=== PATIENT | female | born 1990 | race Caucasian/White ===

== ENCOUNTER 2016-08-18 05:50 | Observation (INO) | payer BC ==
--- NOTE | 2016-08-18 06:08 | ED ---
Neurological HPI - HPI Summary HPI Summary: Patient is 27 weeks and noticed acute onset of L arm and leg to be insensate while playing video games at 0510. Persistent since onset. No allev factors attempted. Denies trauma or headche. - History of Current Complaint Chief Complaint: ED Stated Complaint: NO FEELING LEFT SIDE OF BODY/7 MONTHS PREG Time Seen by Provider: 08/18/16 05:52 Hx Obtained From: Patient, Family/Electric Range Servicer - Onset/Duration: Sudden Onset, Other - Started 0510 Timing: Constant Onset Severity: Mild Current Severity: Mild Neurological Deficit Location: LUE, LLE Pain Intensity: 0 - Allergy/Home Medications Allergies/Adverse Reactions: Allergies Allergy/AdvReac Type Severity Reaction Status Date / Time No Known Allergies Allergy Verified 08/18/16 06:58 Home Medications: Home Medications Docosahexaenoic Acid [ Dha] 200 mg PO DAILY 08/18/16 [History Confirmed 08/18/16] PMH/Surg Hx/FS Hx/Imm Hx Previously Healthy: Yes Infectious Disease History: No Infectious Disease History: Denies: Traveled Outside the [place] in Last 30 Days - Family History Known Family History: Positive: None - Social History Alcohol Use: Occasionally Substance Use Type: Reports: None Smoking Status (MU): Never Smoked Tobacco Review of Systems Positive: Numbness All Other Systems Reviewed And Are Negative: Yes Physical Exam Triage Information Reviewed: Yes Vital Signs On Initial Exam: Initial Vitals Temp Pulse Resp BP Pulse Ox 97.6 F 99 16 116/82 97 08/18/16 05:53 08/18/16 05:53 08/18/16 05:53 08/18/16 05:53 08/18/16 05:53 Vital Signs Reviewed: Yes Appearance: Positive: Well-Appearing, No Pain Distress, Well-Nourished Skin: Positive: Warm, Skin Color Reflects Adequate Perfusion, Dry Head/Face: Positive: Normal Head/Face Inspection Eyes: Positive: Normal, EOMI, DC ENT: Positive: Normal ENT inspection, Hearing grossly normal, Pharynx normal Respiratory/Lung Sounds: Positive: Clear to Auscultation, Breath Sounds Present Cardiovascular: Positive: Normal, RRR, Pulses are Symmetrical in both Upper and Lower Extremities Abdomen Description: Positive: Nontender, No Organomegaly, Soft, Other: - Gravid abdomen Musculoskeletal: Positive: Normal, Strength/ROM Intact Neurological: Positive: Normal, Alert, Oriented to Person Place, Time, CN Intact II-III, Reflexes Intact, Normal Gait, Heel to Toe, Finger to Nose, Facial Symmetry - Insensate to pain from the shoulder to finger tips and hip to toes on the L arm and leg on dorsal and volar side. Pressure sensation intact. , Speech Normal, Pronator Drift Present. Negative: Abnormal Gait, Receptive Aphasia, Expressive Aphasia, Babinski Left, Babinski Right, Babinski Bilateral, Cerebellar Dysfunction, Disoriented, EOM Palsy, Facial Droop, Slurred Speech, Dysphagia, Rhomberg, Ataxic Gait, Dysarthric Aphasia Diagnostics - Vital Signs Vital Signs Temp Pulse Resp BP Pulse Ox 08/18/16 05:53 97.6 F 99 16 116/82 97 - Laboratory Result Diagrams: 08/18/16 06:00 08/18/16 06:00 Lab Statement: Any lab studies that have been ordered have been reviewed, and results considered in the medical decision making process. NIH Scale - NIH Scale Level of Consciousness: Alert/Keenly Responsive Ask Patient the Month and His/Her Age: Both Correct Ask Pt to Open/Close Eyes and Radiology Specialist/Release Non-Paretic Hand: Both Correctly Best Gaze (Only Horizontal Eye Movement): Normal Visual Field Testing: No Visual Loss Facial Paresis-Pt to Smile & Close Eyes or Grimace Symmetry: Normal/Symmetrical Motor Function - Right Arm: No Drift-Holds 10 Seconds Motor Function - Left Arm: No Drift-Holds 10 Seconds Motor Function - Right Leg: No Drift-Holds 10 Seconds Motor Function - Left Leg: No Drift-Holds 10 Seconds Limb Ataxia-Must be out of Proportion to Weakness Present: Absent Sensory (Use Pinprick to Test Arms/Legs/Trunk/Face): Severe to Total Loss Best Language (Describe Picture, Name Items): No Aphasia Dysarthria (Read Several Words): Normal Extinction and Inattention: No Abnormality Total Score: 2 Course/Dx - Differential Dx Differential Diagnoses Neuro: Positive: Cerebrovascular Accident, Intracranial Bleed, Metabolic Abnormality, Transient Ischemic Attack, Other - NIH of [address] head and admit due to state and CVA onset at 0510 am. - Diagnoses Provider Diagnoses: Numbness and tingling in left arm - Physician Notifications Discussed Care of Patient With: 06:40a Dr. White would like carotid duplex and MRA/MRI brain non contrast stat. He asked for photo technologist to be called in if needed and to be first patient for carotid duplex and MRI. Radiology is arranging for MR to be done first of the morning. 06:50a Bedside carotid ultrasound without dissection or occlusion on B mode or color flow. Limited without duplex ability. - Critical Care Time Critical Care Time: 30-74 min Discharge - Discharge Plan Condition: Stable Disposition: ADMITTED TO [facility]
[2016-08-18 06:16] LABS: Hematocrit 37 % (35-47); Hemoglobin 12.9 g/dl (12.0-16.0); Mean Corpuscular HGB Conc 35 g/dl (31-36); Mean Corpuscular Hemoglobin 31 pg (27-31); Mean Corpuscular Volume 89 fL (80-97); Mean Platelet Volume 8 um3 (7.4-10.4); Red Blood Count 4.18 10^6/ul (4.0-5.4); Red Cell Distribution Width 14 % (10.5-15); White Blood Count 8.4 10^3/ul (3.5-10.8)
[2016-08-18 06:30] LABS: BUN/Creatinine Ratio 15.9 (8-20); Calcium 8.9 mg/dL (8.6-10.3); EGFR African American 225.9 (>60); EGFR Non-African American 175.7 (>60); Potassium 3.8 mmol/L (3.5-5.0)
--- NOTE | 2016-08-18 08:07 | RAD ---
INDICATION: Cerebrovascular accident. COMPARISON: There are no prior studies available for comparison. TECHNIQUE: Contiguous axial sections of the brain were obtained from the skull base to the vertex without contrast. FINDINGS: The ventricles, cisterns and sulci are within normal limits. No significant focal abnormality or mass effect is seen. There appears to be normal bearden-white differentiation. There is no evidence for hemorrhage. No significant focal osseous abnormality is seen. The visualized portion of the paranasal sinuses and mastoid air cells appear clear. The results of this exam were called by Image Summer Nanny at 0630 hours. IMPRESSION: NO EVIDENCE FOR GROSS ACUTE INFARCT, MASS EFFECT OR HEMORRHAGE. CONSIDER AN MRI OF THE BRAIN FOR FURTHER EVALUATION.
--- NOTE | 2016-08-18 09:36 | RAD ---
Indication: Stroke. Sagittal and axial T1, axial T2, FLAIR, diffusion and susceptibility weighted images of the brain were obtained. Ventricular structures are midline. No midline shift is noted. The extra-axial spaces are unremarkable. Diffusion-weighted images demonstrates no restriction of diffusion. T2 weighted images demonstrates no evidence of vasogenic edema. No evidence of space-occupying lesions are noted. The brainstem demonstrates no abnormal signal. Cerebellopontine angles are unremarkable. Mastoid air cells are otherwise unremarkable. Minimal mucosal thickening of the maxillary sinuses is noted. IMPRESSION: No intracranial lesion is identified. No restriction of diffusion is noted. Findings discussed with Dr. White approximately 9:25 AM.
--- NOTE | 2016-08-18 09:39 | RAD ---
Indication: LEFT arm weakness with clinical concern for CVA. Comparison: MRI and CT brain exams of the same date. Technique: Picturaea 1.5 Sonia [id number] with GEM suite. MR angiography 3-D [id number] data was obtained with rotational display of the [place] of Blunt and posterior fossa arteries. Report: Patent intracranial internal carotid arteries as well as the M1 and M2 segments of the middle cerebral arteries and the A1 and A2 segments of the anterior cerebral arteries. No definitive anterior communicating artery visualized. Both vertebral arteries contribute to the unremarkable basilar artery. Unremarkable cerebellar artery origins. Patent bilateral posterior cerebral arteries are supplied by both the posterior circulation via P1 segments and anterior circulation via posterior communicating arteries. No central intracranial aneurysms evident. IMPRESSION: Negative MRA of the central intracranial arterial vasculature.
[2016-08-18] MEDS: NS 0.9% 1000 ML* 1,000 ML IV SCH ×2 (09:44→20:47)
[2016-08-18] MEDS ORDERED: Acetaminophen TAB* 325 MG PO PRN (10:04)
--- NOTE | 2016-08-18 10:07 | PN ---
Hospitalist Progress Note HOSPITALIST ADDENDUM Case discussed again with Dr. White. MRI and MRA were reviewed with Radiology and no abnormalities were seen. He d/w OBGYN and plan is to give Aspirin 81mg/ day. Awaiting echocardiogram and carotid US. Will request PT/OT consults.
--- NOTE | 2016-08-18 10:14 | HP ---
HISTORY AND PHYSICAL: DATE OF ADMISSION: 08/18/16 TIME OF EVALUATION: 07:40 a.m. CONSULTING NEUROLOGIST: Dr. Jim White. CONSULTING OB-AUTOMATIC PATTERN EDGER: Dr. Kenneth Vergara. CHIEF COMPLAINT: Left arm numbness and weakness. HISTORY OF PRESENT ILLNESS: Ms. Childs is a 25-year-old lady with past medical history of possible migraines who presented to the emergency room around 6 in the morning with complaints of sudden onset of left hand numbness. She states that she did not sleep overnight and was playing video games, and around 5 in the morning she had the sudden onset of loss of feeling on her left hand, and 5 minutes later that extended up to her arm and left face. Although she complains of numbness, what she means by numbness is that she could not feel the arm and movement was also impaired. Her boyfriend was present and states that she did not have a facial droop and did not have speech changes, but became very anxious. She denies headache, facial droop. No dysarthria. She states that she did not realize her leg was also numb, but in the emergency room while she was being examined by the emergency room provider, during the sensation part she realized that the sensation was different on her left leg. She denies left leg weakness and states she was able to ambulate in the emergency room with no problems. The patient is , but she is not sure about how many weeks at this time. She thinks she is due around October 08 and she has been followed regularly by midwives at [place] OB-AUTOMATIC PATTERN EDGER. She states that she last took Tylenol weeks ago for some headache and has not taken any other medications. She does state that for the past week, she thought maybe she was coming down with a viral illness with some nasal congestion, some dry cough, but she did not take any medications for it. PAST MEDICAL HISTORY: Possible migraines. MEDICATION LIST: vitamin. ALLERGIES: No known drug allergy. FAMILY HISTORY: Maternal grandfather of a heart attack, and paternal grandfather was a smoker and of lung cancer. There is no family history of stroke. SOCIAL HISTORY: The patient denies tobacco, alcohol, or drug use. 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 Surrogate decision maker is her father, Otoniel Childs , phone number [phone]. REVIEW OF SYSTEMS: A 14-point review of systems was performed and all the pertinent negative and positive findings are in the HPI. PHYSICAL EXAMINATION GENERAL: The patient is a pleasant young lady, lying on ER stretcher, in no acute distress. VITAL SIGNS: Temperature 97.6, heart rate 87, respiratory rate 16, oxygen saturation 97% on room air, blood pressure 114/75. HEENT: Pupils are equal and reactive to light. Moist mucous membranes. CHEST: Breath sounds present bilaterally with no added sounds. CVS: Normal S1, S. Regular rate and rhythm. ABDOMEN: Soft. The patient is . Bowel sounds are present. There is no tenderness on palpation. EXTREMITIES: No edema. NEUROLOGIC: She is alert, awake, oriented x3. I performed a neurological exam with Dr. White and the findings varied during evaluation. The patient initially had no pronator drift on the left, but later on there was suggestion of some pronator drift. The same thing happened with evaluation of the strength on her left hand; the findings were equivocal. She does appear to have sensation on her left upper extremity; but, when he checked vibration, the sensations split at midline. DIAGNOSTIC STUDIES/LAB DATA: The patient had a CBC that showed WBC of 8.4, hemoglobin 12.9, hematocrit 37, platelets 267. INR was 0.95. Chemistry showed a sodium of 134, potassium 3.8, chloride 105, bicarb 22, BUN 7, creatinine 0.4, glucose 101, calcium 8.9. Lipid profile is pending at this time. EKG was not performed in the emergency room and is now ordered. CT brain read by night radiologist showed no mass effect or intracranial hemorrhage. ASSESSMENT AND PLAN: Ms. Childs is a 25-year-old healthy lady who is now , in her third trimester, who presents to the emergency room with complaints of sudden onset of left arm numbness and weakness around 5 this morning, who is being admitted for further evaluation of a possible TIA versus CVA. 1. Left arm paresthesia and weakness. The patient will be admitted as observation to telemetry. Carotid ultrasound is ordered, and I am also going to order an echocardiogram with bubble study. Dr. White was present in the emergency room during my evaluation and he has made arrangements for a stat MRI/ MRA of the head and further decision will be made after the result. He recommended waiting on aspirin for now until we see her MRI result. A Neurology consultation had already been requested with him. The patient is going to be monitored with neurological checks and, depending on the results of her MRI and therapeutic plan, she may need to be transferred to the Intensive Care Unit. 2. . As per nursing report, the patient had a Doppler done at bedside that revealed a heart of 150. I have requested a consultation with OB-AUTOMATIC PATTERN EDGER (Dr. Vergara) to follow the patient throughout the hospital stay. 3. Code status is full. 4. DVT prophylaxis. The patient has a score of 1 on the DVT Prophylaxis Risk Assessment Guide, and she is going to have SCDs while in bed and we're going to encourage ambulation. TIME SPENT: Approximately 55 minutes were spent with the patient interview, medical record review, physical examination to complete the admission; more than half of this time was spent [id number] with the patient and coordination of care. CC: Midwives at [place] OB-AUTOMATIC PATTERN EDGER; Dr. Jim White; Dr. Kenneth Vergara * [id number]/[facility] #: [id number] RADHA
[2016-08-18] MEDS: Aspirin EC Low Dose* 81 MG TAB.EC PO SCH (10:59)
--- NOTE | 2016-08-18 11:36 | CONS ---
ADDENDUM NOW INCLUDED ON THIS REPORT CONSULTATION REPORT: DATE OF CONSULT: 08/18/16 PATIENT OF: Dr. Mcmahan HISTORY OF PRESENT ILLNESS: This is a 25-year-old right-handed woman who is 27 weeks and has been in good health other than having a cold with runny nose in the past week or so. She presented with numbness and some tingling of the left arm and beginning in the hands spreading up the arm and then affecting the face. She had no numbness in the left leg that she noted when she came in but upon testing, she noted it was numb and tingling. She had no weakness upon history and had no problems with walking, and when I spoke to the ER physician at 6:45 to 6:55 roughly, he noted no weakness to me but she had a pronator drift. I had asked for acute MRI scan at that point and called back to see if they have been contacted and was being done as the first one. He said it was in the process of filling, it has not been done to this point. She has had no speech problems with this. She has had headache, including a migraine headache, in the past few weeks time, but there has been no headache with these current symptoms. There has been no head trauma. MEDICATIONS: vitamins is her only vitamin. ALLERGIES: She has no known drug allergies. FAMILY HISTORY: There is no family history for stroke. SOCIAL HISTORY: She does not smoke, drink, or use drugs. REVIEW OF SYSTEMS: Negative in all 14 spheres other than HPI. PHYSICAL EXAM: Temperature 97.6, pulse 87, respirations 16, blood pressure 114/ 75. She is alert and oriented with normal speech and comprehension. Cranial nerves II through XII are intact including normal fundi. There is no facial asymmetry. Her only cranial nerve deficit was that she could not feel touch or vibration on the left side of her face, including there was a sharp demarcation of this vibration splitting in the midline on her forehead. Motor exam revealed some weakness on the left side. It varied from exam to exam. She had at different times a pronator drift and at other times did not. She had at least trace weakness in the left arm and hand, but at times she would drop her arm quickly to the bed. When I came into the room at one point, she was holding her cell phone with both hands and appeared to have good dexterity and she was able to do alternating fingers without problem. Her supervisor cutting department at times by hand would go easily through her fingers, but then when I pulled back on her, she had excellent resistance. She had some varying degree of weakness in the left leg at times. It was just trace to none, but at one point it was 5-/5, but at that point, she had a positive Farnsworth's sign. Toes were downgoing. She had fluctuated sensory exam but at one point she could not feel at all to even light touch, but would feel pressure in her left arm and leg. DIAGNOSTIC STUDIES/LAB DATA: Her CT scan was reviewed and was normal. She has normal CBC, INR, and PTT. Chemistries showed normal BMP other than glucose of 101. LDL was pending. IMPRESSION: Marguerite has evidence of left-sided symptoms of acute onset, some of which appear to be functional such as vibration, splitting in the midline on her forehead and some give-way weakness. However, it is impossible to know whether there is underlying organic stroke going on; if so, given her best efforts, it would appear to be very mild if there at all. An MRI scan would be quite useful and I have contacted the radiologist and the test will be done as the next test. I discussed with her that if she was having a severe stroke, she was within the tPA window and that she will be a potential candidate. However, I think that there is significant functional overlay and we will be getting an MRI scan shortly to help sort this out. She will also need an echo, an ultrasound, an MRI of the brain as well as fasting lipids, and if the MRI scan is negative and we feel she does not need to be on tPA, then we will begin aspirin once we check with the OB. Thank you for sharing her case. ADDENDUM: I reviewed the MRI scan and spoke to Dr. Patel earlier and saw the patient down an MRI scan area after the MRI scan. The MRI scan was normal. The MRA of the head was normal. The patient still had numbness. The strength was somewhat better, although she still had giveaway weakness in her supervisor cutting department of her left hand. I discussed with her, it is possible she could have had a small stroke, small enough not visualized on MRI scan, but some of her symptoms maybe stress related and that the degree of her symptoms that I could not be sure that was stress related, the deficit is quite small and I expected that she would get better. I spoke to the OB who says that there will be no problem with baby aspirin and I would recommend that she get that now on an ongoing basis. [id number]/[facility] #: [id number] A- [id number]/[facility] #: [id number] MTDD
--- NOTE | 2016-08-18 12:20 | PN ---
Progress Note - Progress Note Note: 25 yo with new onset left arm weakness . at 33 weeks gestation. uncomplicated other than referral currently for episodes of palpitation. pt being evaluated for CVA event . If risk of embolic or cva ,asa 81 mg would safe to use . If signifant concern other anticoagulation is appropriate. Prenatals are on the chart. Will order a nst while in house to assess well being CALL IF ANY CONCERNS Soren Vergara mD
--- NOTE | 2016-08-18 13:30 | RAD ---
HISTORY: Left-sided numbness COMPARISONS: None TECHNIQUE: Multiple transverse and longitudinal ultrasound images were obtained of the carotid and vertebral arteries bilaterally, using grayscale, color Doppler, and spectral Doppler imaging. FINDINGS: Measurement of carotid stenosis is based on flow velocity parameters that correlate the residual internal carotid artery diameter with [place] Symptomatic Carotid Endarterectomy Trial (NASCET)-based stenosis levels. RIGHT: Intima: The intima is normal. Velocities: Right internal carotid artery maximum peak systolic velocity: 78 cm/s Right common carotid artery maximum peak systolic velocity: 144 cm/s Right internal carotid artery/common carotid artery ratio: 0.5 Waveforms: There is no spectral broadening. Right Vertebral: The right vertebral artery flow is antegrade. LEFT: Intima: The intima is normal. Velocities: Left internal carotid artery maximum peak systolic velocity: 100 cm/s Left common carotid artery maximum peak systolic velocity: 147 cm/s Left internal carotid artery/common carotid artery ratio: 1 Waveforms: There is no spectral broadening. Left Vertebral: The left vertebral artery flow is antegrade. OTHER FINDINGS: None. IMPRESSION: 1. NO HEMODYNAMICALLY SIGNIFICANT STENOSIS OF THE RIGHT INTERNAL CAROTID ARTERY BY FLOW VELOCITY MEASUREMENTS. THIS CORRESPONDS TO A LUMINAL DIAMETER OF LESS THAN 50% STENOSIS BY NASCET CRITERIA. 2. NO HEMODYNAMICALLY SIGNIFICANT STENOSIS OF THE LEFT INTERNAL CAROTID ARTERY BY FLOW VELOCITY MEASUREMENTS. THIS CORRESPONDS TO A LUMINAL DIAMETER OF LESS THAN 50% STENOSIS BY NASCET CRITERIA. CPT II Codes: 3100F
--- NOTE | 2016-08-18 15:09 | CONS ---
CONSULTATION REPORT:* DATE OF CONSULTATION: ADDENDUM: I reviewed the MRI scan and spoke to Dr. Patel earlier and saw the patient down an MRI scan area after the MRI scan. The MRI scan was normal. The MRA of the head was normal. The patient still had numbness. 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 I discussed with her, it is possible she could have had a small stroke, small enough not visualized on MRI scan, but some of her symptoms maybe stress related and that the degree of her symptoms that I could not be sure that was stress related, the deficit is quite small and I expected that she would get better. I spoke to the OB who says that there will be no problem with baby aspirin and I would recommend that she get that now on an ongoing basis. [id number]/[facility] #: [id number] MTDD
--- NOTE | 2016-08-18 18:39 | ECHO ---
Patient: CALLIE GAN [facility] Rec#: [id number] : 1990 Date: 08/18/2016 Age: 25y Height: 162 cm / 63.8 in Weight: 66 kg / 145.5 lbs Sex: F BSA: 1.7 Room#: 438 Admit Date#: 08/18/2016 Type: Inpatient Referring: Carlyn Duncan MD Reading: Karthikeyan Victor MD Pilot Submersible: Jose Miguel Recio RDCS Transthoracic Echocardiogram Indication: TIA, BP: 107/50 HR: 78 Rhythm: NSR Findings History: tia Technical Comments: The study quality is good. Left Ventricle: The left ventricular chamber size is normal. Global left ventricular wall motion and contractility are within normal limits. There is normal left ventricular systolic function. The estimated ejection fraction is 60-65%. The left ventricular diastolic filling pattern is consistent with pseudonormalization. Left Atrium: The left atrial chamber size is normal. Right Ventricle: The right ventricular cavity size is normal. The right ventricular global systolic function is normal. Right Atrium: The right atrial cavity size is normal. There is no evidence of patent foramen ovale shunting. by color or bubble study. Aortic Valve: The aortic valve is trileaflet. There is a trace of aortic regurgitation. There is no evidence of aortic stenosis. Mitral Valve: The mitral valve leaflets appear normal. There is no evidence of mitral regurgitation. There is no evidence of mitral stenosis. Tricuspid Valve: The tricuspid valve appears normal in structure and function. There is no evidence of tricuspid valve regurgitation. Pulmonic Valve: The pulmonic valve appears normal. There is a trace pulmonic regurgitation. Pericardium: There is no pericardial effusion. Aorta: There is no dilatation of the ascending aorta. There is no dilatation of the aortic arch. There is no dilation of the aortic root. Pulmonary Artery: The main pulmonary artery appears normal. Venous: The inferior vena cava appears normal in size. There is a greater than 50% respiratory change in the inferior vena cava dimension. Contrast: Intravenous agitated saline contrast was used to assess intracardiac shunting. image 72 Summary: There was not any prior study for comparison. Conclusions Global left ventricular wall motion and contractility are within normal limits. The estimated ejection fraction is 60-65%. There is a trace of aortic regurgitation. There is no evidence of patent foramen ovale shunting. by color or bubble study. Measurements Name Value Normal Range RVIDd (AP) 2D 2.4 cm (0.9 - 2.6) RVDdMajor (2D) 2 cm (2.2 - 4.4) RAd ISD 4CH 3.3 cm (3.4 - 4.9) IVSd (2D) 0.7 cm (0.6 - 1) LVPWd (2D) 0.7 cm (0.6 - 1) LVIDd (2D) 4.3 cm (3.6 - 5.4) LVIDs (2D) 2.6 cm - LV FS (2D) 39 % (25 - 45) Aortic Annulus 1.6 cm (1.4 - 2.6) Ao root diameter (2D) 2.8 cm (2.1 - 3.5) Ascending Ao 2.7 cm (2.1 - 3.4) Aortic arch 2.3 cm (1.8 - 3.4) LA dimension (AP) 2D 3.4 cm (2.3 - 3.8) LAd ISD 4CH 4.8 cm (2.9 - 5.3) LA ISD 4CH W 3.1 cm (2.5 - 4.5) Name Value Normal Range LA ESV SP 4CH (A/L) 38 ml - LA ESV SP 2CH (A/L) 46 ml - LA ESV BP (A/L) 42 ml - LA ESV BP (A/L) index 24.97 ml/m2 - LA ESV SP 4CH (MOD) 33 ml - LA ESV SP 2CH (MOD) 44 ml - Name Value Normal Range MV E-wave Vmax 0.82 m/sec - MV deceleration time 114 msec - MV A-wave Vmax 0.62 m/sec - MV E:A ratio 1.32 ratio - LV septal e' Vmax 0.1 m/sec - LV lateral e' Vmax 0.15 m/sec - LV E:e' septal ratio 8.2 ratio - LV E:e' lateral ratio 5.4 ratio - Name Value Normal Range LVOT diameter 1.7 cm - LVOT Vmax 1.3 m/sec - Name Value Normal Range IVC diameter 1.56 cm - Name Value Normal Range PV Vmax 1.04 m/sec - PV peak gradient 4.31 mmHg -
[2016-08-19 07:53] VITALS: BP 94/57
[2016-08-19] MEDS: Aspirin EC Low Dose* 81 MG TAB.EC PO SCH (07:58)
[2016-08-19] MEDS: NS 0.9% 1000 ML* 1,000 ML IV SCH (07:58)
--- NOTE | 2016-08-19 11:03 | PN ---
Progress Note - Progress Note Note: Discharge Note: Primary Dx: Hemiparesis/parasthesias, possible stroke vs hemiplegic migraine Secondary Dx: Procedures: TTE w/ bubble study: NEG Carotid doppler: NEG MRA brain: NEG MRI brain: NEG Consults: Dr. White of neurology Exam: CN II-XII intact Motor 5/5 UE, LE No pronator drift DTR 2+/symmetric UE, LE
--- NOTE | 2016-08-20 01:18 | DS ---
CC: Dr. 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 SECONDARY DIAGNOSES: 1. . 2. History of migraines. MEDICATIONS ON DISCHARGE: 1. Aspirin 81 mg p.o. daily. 2. Tylenol 650 mg p.o. 4 times a day p.r.n. pain. 3. vitamins 1 tab p.o. daily. HOSPITAL COURSE: A 25-year-old woman was admitted through the emergency department by Dr. Arlene kim th left arm numbness and weakness. The patient also states she had numbness on the left side of her face and her left leg. The patient is followed by Dr. Vergara and Dr. Mcgraw of [facility]. The patient is not a smoker. Please see the history and physical for full details of this medica l admission. The patient had a head CT that was negative for infarct or hemorrhage. The patient had a carotid Doppler bilateral with no evidence of stenosis. The patient had a MRI and MRA of the bra in, which showed no infarct and no intracerebral narrowing. She also had a transthoracic echocardiog josiah with a bubble study that showed no patent foramen ovale or other valvular or structural heart di sease. The patient was kept on telemetry for 24 hours in the hospital and her symptoms resolved ove rnight. She was seen in consultation by Dr. White of Neurology who was concerned about TIA versus stroke versus somatic syndrome. The patient also was seen in [facility] and the patient had a normal heart tracing in the morning of discharge. The patient has b een started on aspirin 81 mg p.o. daily to prevent further strokes or TIAs while she is in her pregn maureen, hypercoagulable state. If she has a noted event, I would recommend a transesophageal echocard iogram. The patient also reports some palpitations, which were not born out as anything concerning on telemetry. Outpatient Holter monitor should be considered. DISPOSITION: Home. ACTIVITY: As tolerated. DIET: Regular. FOLLOWUP: She is going to follow up with my office for primary care and see Dr. Mcgraw and that group for continued [facility] care. Her estimated date of delivery is in October, so she is probably in the second, early third trimester. [id number]/[facility] #: [id number]
[2016-08-21 15:21] LABS: LAC APTT 28 sec (26 - 36); Lac DRVVT Screen Ratio 0.9 ratio (0.0 - 1.1); Prothrombin Time(LAC) 11.4 sec
[2016-08-21 18:46] LABS: Phospholipid Ab IgG < 9.4 GPL; Phospholipid Ab IgM, S < 9.4 MPL
[2016-08-23 16:01] LABS: Prothrombin 20210 Mutation Heterozygous (Negative)
== END 2016-08-19 13:00 | disposition home or self-care (01) ==
LOC: ED 05:50 → MEDTELE 06:55
PROVIDERS: ADMIT Internal Medicine; ATTEND Internal Medicine
DX: O26.893 Other specified pregnancy related conditions, third trimester (principal); Z3A.33 33 weeks gestation of pregnancy; R20.9 Unspecified disturbances of skin sensation; R53.1 Weakness; R20.2 Paresthesia of skin; I34.0 Nonrheumatic mitral (valve) insufficiency; Z79.899 Other long term (current) drug therapy
CPT/HCPCS: 36415; 70450; 70544; 70551; 80048; 80061; 81240; 85027; 85610; 85613; 85730; 86147; 93005; 93306; 93880; 96360; 96361; 99291; A9270-GY; G0378

== ENCOUNTER 2016-08-23 13:43 | Emergency (ER) | payer BC ==
[2016-08-23 14:27] VITALS: BP 110/66
--- NOTE | 2016-08-23 16:04 | UC ---
FLU HPI - HPI Summary HPI Summary: COUGH NASAL CONGESTION BODY ACHES FOR TWO DAYS.33 WKS - History of Current Complaint Chief Complaint: UC Stated Complaint: HEAD/CHEST CONGESTION Time Seen by Provider: 08/23/16 14:56 Hx Obtained From: Patient Hx Last Menstrual Period: 33 weeks preg. Onset/Duration: Sudden Onset, Lasting Days, Still Present Pain Intensity: 0 Pain Scale Used: 0-10 Numeric Associated Signs & Symptoms: Positive: F/C, Nasal Congestion Related Hx: Possible Flu/Infectious Exposure - Allergy/Home Medications Allergies/Adverse Reactions: Allergies Allergy/AdvReac Type Severity Reaction Status Date / Time No Known Allergies Allergy Verified 08/18/16 06:58 PMH/Surg Hx/FS Hx/Imm Hx Previously Healthy: Yes Cardiovascular History Of: Denies: Pacemaker/ICD - Surgical History Surgical History: Yes Surgery Procedure, Year, and Place: [place],2009 - Family History Known Family History: Positive: None Negative: Respiratory Disease - Social History Occupation: Employed Full-time Lives: With Family Alcohol Use: None Substance Use Type: None Smoking Status (MU): Never Smoked Tobacco Review of Systems Constitutional: Fever, Chills Skin: Negative Eyes: Negative ENT: Negative Respiratory: Negative Cardiovascular: Negative Gastrointestinal: Negative Genitourinary: Negative Motor: Negative Neurovascular: Negative Musculoskeletal: Arthralgia, Myalgia Neurological: Negative Psychological: Negative All Other Systems Reviewed And Are Negative: Yes Physical Exam Triage Information Reviewed: Yes Appearance: No Pain Distress, Well-Nourished, Ill-Appearing - MILD Vital Signs: Initial Vital Signs Temp 98.8 F 08/23/16 14:20 Pulse 74 08/23/16 14:20 Resp 16 08/23/16 14:20 BP 110/66 08/23/16 14:20 Pulse Ox 96 08/23/16 14:20 Vital Signs Reviewed: Yes Eye Exam: Normal ENT Exam: Normal ENT: Positive: Normal ENT inspection, Hearing grossly normal, Pharynx normal, TMs normal Dental Exam: Normal Neck exam: Normal Neck: Positive: Supple, Nontender, No Lymphadenopathy Respiratory Exam: Normal Respiratory: Positive: Chest non-tender, Lungs clear, Normal breath sounds, No respiratory distress, No accessory muscle use Cardiovascular Exam: Normal Cardiovascular: Positive: RRR, No Murmur, Pulses Normal Abdominal Exam: Normal Abdomen Description: Positive: Nontender, No Organomegaly Musculoskeletal Exam: Normal Musculoskeletal: Positive: Strength Intact, ROM Intact, No Edema Neurological Exam: Normal Psychological Exam: Normal Psychological: Positive: Normal Response To Family Skin Exam: Normal Flu Course/Dx - Differential Dx/Diagnosis Differential Diagnosis/HQI/PQRI: Influenza, RSV, Upper Respiratory Infection Provider Diagnoses: INFLUENZA Discharge - Discharge Plan Condition: Stable Disposition: HOME Patient Education Materials: Influenza (ED) Forms: *Work Release Referrals: [facility] [Outside]
== END 2016-08-23 15:38 | disposition home or self-care (01) ==
LOC: UCEAST 13:43
DX: O26.893 Other specified pregnancy related conditions, third trimester (principal); Z3A.33 33 weeks gestation of pregnancy; J11.1 Influenza due to unidentified influenza virus with other respiratory manifestations
CPT/HCPCS: 87502; 99211; G0463

== ENCOUNTER 2016-10-14 08:58 | Inpatient (IN) | payer BC, MEDICAID ==
[2016-10-14] MEDS ORDERED: Dinoprostone* 10 MG VAG.SUPP VAGINAL ONE (09:08)
[2016-10-15] MEDS ORDERED: Oxytocin in LR* 20 UNITS/1,000 ML BAG IVPB ONE (07:23)
[2016-10-15] MEDS ORDERED: Oxytocin in LR* 20 UNITS/1,000 ML BAG IVPB SCH ×2 (08:00→17:00)
[2016-10-15 08:52] LABS: Hematocrit 38 % (35-47); Hemoglobin 13.1 g/dl (12.0-16.0); Mean Corpuscular HGB Conc 34 g/dl (31-36); Mean Corpuscular Hemoglobin 31 pg (27-31); Mean Corpuscular Volume 90 fL (80-97); Mean Platelet Volume 9 um3 (7.4-10.4); Red Blood Count 4.27 10^6/ul (4.0-5.4); Red Cell Distribution Width 14 % (10.5-15); White Blood Count 9.3 10^3/ul (3.5-10.8)
[2016-10-15] MEDS ORDERED: OBEPIDURAL* 250 ML ONE (12:58)
[2016-10-15] MEDS ORDERED: Lidocaine 1% MPF* 2 ML VIAL ONE (12:58)
[2016-10-15] MEDS ORDERED: Phenylephrine IV* 40 MCG/ML 10 ML SYRINGE IV PUSH PRN ×2 (13:55)
[2016-10-15] MEDS ORDERED: Famotidine TAB* 20 MG PO PRN (13:55)
[2016-10-15] MEDS ORDERED: Sodium Citrate/Citric Acid* 15 ML UDC PO PRN (13:55)
[2016-10-15] MEDS ORDERED: OBEPIDURAL* 250 ML EPIDURAL SCH (14:00)
[2016-10-15] MEDS ORDERED: Glycerin ADULT SUPP PR PRN (16:29)
[2016-10-15] MEDS ORDERED: Acetaminophen TAB* 325 MG PO PRN (16:29)
[2016-10-15] MEDS ORDERED: oxyCODONE/Acetamin 5/325 MG* TAB PO PRN (16:29)
[2016-10-15] MEDS ORDERED: Witch Hazel PAD* JAR TOPICAL PRN (16:29)
[2016-10-15] MEDS ORDERED: Dibucaine 1% 28.35 GM TUBE PR PRN (16:29)
[2016-10-15] MEDS ORDERED: Simethicone CHEW TAB* 80 MG PO SCH (17:30)
[2016-10-15] MEDS: Ibuprofen TAB* 600 MG PO PRN (17:41)
[2016-10-15] MEDS: Docusate CAP* 100 MG PO SCH (22:10)
[2016-10-16] MEDS: Ibuprofen TAB* 600 MG PO PRN ×3 (05:56→18:01)
[2016-10-16 07:13] LABS: Hematocrit 34 % (35-47); Hemoglobin 11.8 g/dl (12.0-16.0); Mean Corpuscular HGB Conc 35 g/dl (31-36); Mean Corpuscular Hemoglobin 31 pg (27-31); Mean Corpuscular Volume 90 fL (80-97); Mean Platelet Volume 9 um3 (7.4-10.4); Red Blood Count 3.79 10^6/ul (4.0-5.4); Red Cell Distribution Width 14 % (10.5-15); White Blood Count 12.7 10^3/ul (3.5-10.8)
[2016-10-16] MEDS ORDERED: Ferrous Gluconate TAB* 324 MG TAB PO SCH (09:00)
[2016-10-16] MEDS: Docusate CAP* 100 MG PO SCH ×4 (10:16→20:27)
[2016-10-17] MEDS: Docusate CAP* 100 MG PO SCH (08:12)
[2016-10-17 08:34] VITALS: BP 115/71
[2016-10-17] MEDS: Ibuprofen TAB* 600 MG PO PRN (12:22)
== END 2016-10-17 13:39 | disposition home or self-care (01) | DRG 560 ==
LOC: MCHOBOUT 08:58 → MCHOB 21:34
PROVIDERS: ADMIT Midwife; ATTEND Midwife
PROC: 10E0XZZ Delivery of Products of Conception, External Approach (ICD-10-PCS; principal; 2016-10-15)
PROC: 3E033VJ Introduction of Other Hormone into Peripheral Vein, Percutaneous Approach (ICD-10-PCS; 2016-10-15)
PROC: 10907ZC Drainage of Amniotic Fluid, Therapeutic from Products of Conception, Via Natural or Artificial Opening (ICD-10-PCS; 2016-10-15)
PROC: 0HQ9XZZ Repair Perineum Skin, External Approach (ICD-10-PCS; 2016-10-15)
DX: O48.0 Post-term pregnancy (principal); O99.824 Streptococcus B carrier state complicating childbirth; O70.0 First degree perineal laceration during delivery; Z3A.41 41 weeks gestation of pregnancy; Z37.0 Single live birth
CPT/HCPCS: 36415; 59200; 85025; 85027; 86850; 86900; 86901; A9270-GY